=== PATIENT | male | born 1960 | race Caucasian/White ===

== ENCOUNTER 2017-01-16 18:43 | Emergency (ER) | payer OTHER ==
[2017-01-16 22:24] LABS: HEMOGLOBIN 11.9 gm/dl (14.0-17.5); RED BLOOD COUNT 4.44 M/UL (4.20-5.50); WHITE BLOOD COUNT 7.8 K/UL (4.5-11.0)
== END 2017-01-17 06:00 | disposition home or self-care (01) ==
LOC: ER1 18:43
PROVIDERS: Family Medicine
DX: I87.8 Other specified disorders of veins (principal); L98.8 Other specified disorders of the skin and subcutaneous tissue; N19 Unspecified kidney failure; E11.9 Type 2 diabetes mellitus without complications; I10 Essential (primary) hypertension
CPT/HCPCS: 36415; 71020; 80053; 81001; 83036; 85025; 85379; 87086; 93005; 99283

== ENCOUNTER → 2017-01-21 | Outpatient (CLI) | payer OTHER | LOC: US 10:43 | DX: M79.662 Pain in left lower leg (principal); M79.661 Pain in right lower leg | CPT/HCPCS: 93970 ==

== ENCOUNTER 2017-02-05 13:07 | Emergency (ER) | payer OTHER | END 2017-02-05 15:28 | disposition home or self-care (01) | LOC: ER1 13:07 | DX: I10 Essential (primary) hypertension (principal); E11.9 Type 2 diabetes mellitus without complications; I49.9 Cardiac arrhythmia, unspecified; Z87.891 Personal history of nicotine dependence | CPT/HCPCS: 36415; 71010; 99284 ==

== ENCOUNTER 2020-12-12 12:33 | Emergency (ER) | payer OTHER ==
[~2020-12-12 12:33] MED LIST: AMOX TR-K CLV1 EAC4 PO; CARVEDILOL3.125 MG PO; CARVEDILOL6.25 MG PO; NORVASC 5 MG TAB5 MG PO
[2020-12-12 14:50] LABS: HEMOGLOBIN 12.8 gm/dl (14.0-17.5); RED BLOOD COUNT 4.56 M/UL (4.20-5.50); WHITE BLOOD COUNT 6.9 K/UL (4.5-11.0)
[2020-12-12] MEDS ORDERED: CLINDAMYCIN HC150 MG PO (17:14)
[2020-12-12] MEDS ORDERED: LASIX20 MG PO (17:14)
== END 2020-12-12 17:30 | disposition home or self-care (01) ==
LOC: ER1 12:33
PROVIDERS: Student in an Organized Health Care Education/Training Program
DX: L03.116 Cellulitis of left lower limb (principal); L03.115 Cellulitis of right lower limb; I10 Essential (primary) hypertension
CPT/HCPCS: 73590; 80053; 82550; 82553; 83605; 83735; 83874; 83880; 84100; 84484; 85025; 85652; 86140; 93971; 99284

== ENCOUNTER 2020-12-20 11:43 | Inpatient (IN) | payer OTHER ==
[~2020-12-20] VITALS: Ht 193 cm; Wt 158.8 kg
[~2020-12-20 11:43] MED LIST changes: +CLINDAMYCIN HC150 MG PO; +LASIX20 MG PO
[2020-12-20 14:36] LABS: HEMOGLOBIN 12.6 gm/dl (14.0-17.5); RED BLOOD COUNT 4.51 M/UL (4.20-5.50); WHITE BLOOD COUNT 6.9 K/UL (4.5-11.0)
[2020-12-21 05:33] LABS: HEMOGLOBIN 11.5 gm/dl (14.0-17.5); RED BLOOD COUNT 4.19 M/UL (4.20-5.50); WHITE BLOOD COUNT 6.5 K/UL (4.5-11.0)
[2020-12-21] MEDS ORDERED: COREG3.125 MG PO (10:49)
[2020-12-23 05:39] LABS: HEMOGLOBIN 11.6 gm/dl (14.0-17.5); RED BLOOD COUNT 4.21 M/UL (4.20-5.50); WHITE BLOOD COUNT 6.5 K/UL (4.5-11.0)
[2020-12-24 05:44] LABS: HEMOGLOBIN 11.5 gm/dl (14.0-17.5); RED BLOOD COUNT 4.22 M/UL (4.20-5.50); WHITE BLOOD COUNT 6.9 K/UL (4.5-11.0)
[2020-12-25] MEDS ORDERED: OMNICEF 300 MG300 MG PO (11:11)
[2020-12-25] MEDS ORDERED: LASIX20 MG PO (11:11)
[2020-12-25] MEDS ORDERED: HYDRALAZINE HCL25 MG PO (11:15)
--- NOTE | 2020-12-25 12:05 | NUR ---
1210: PATIENT IS UNABLE TO READ, RN SPOKE WITH PATIENTS BROTHER, REGARDING DISCHARGE INSTRUCTIONS FOR MEDICATIONS, FOLLOW-UP APOINTMENTS AND RETURNING TO THE HOSPITAL FOR SCHEDULED LABS AND CXR JANUARY 04, 2021, AND ULTRASOUND ON JANUARY 24, 2021. VERBAL UNDERSTANDING NOTED.
== END 2020-12-25 12:13 | disposition home health service (06) | DRG 602 ==
LOC: ER1 11:43 → CDU 18:19 → MED SURG 4 18:19
PROVIDERS: Emergency Medicine; Internal Medicine; ADMIT Internal Medicine
DX: L03.115 Cellulitis of right lower limb (principal); I21.4 Non-ST elevation (NSTEMI) myocardial infarction; J81.1 Chronic pulmonary edema; N17.9 Acute kidney failure, unspecified; I13.0 Hypertensive heart and chronic kidney disease with heart failure and stage 1 through stage 4 chronic kidney disease, or unspecified chronic kidney disease; Z68.41 Body mass index [BMI] 40.0-44.9, adult; L03.116 Cellulitis of left lower limb; I87.8 Other specified disorders of veins; E11.9 Type 2 diabetes mellitus without complications; D53.9 Nutritional anemia, unspecified; Z20.822 Contact with and (suspected) exposure to COVID-19; E66.01 Morbid (severe) obesity due to excess calories; N18.30 Chronic kidney disease, stage 3 unspecified; I50.810 Right heart failure, unspecified; R59.1 Generalized enlarged lymph nodes; Z91.14 Patient's other noncompliance with medication regimen; Z87.891 Personal history of nicotine dependence
CPT/HCPCS: ECHO; 36415; 71046; 80048; 80053; 82550; 82553; 82962; 83874; 83880; 84484; 85025; 85652; 86140; 93005; 93306; 94664; 96374; 96375; 99284; J0690; J1650; U0002

== ENCOUNTER 2021-01-04 11:32 | Emergency (ER) | payer OTHER ==
[~2021-01-04 11:32] MED LIST changes: +COREG3.125 MG PO; +HYDRALAZINE HCL25 MG PO; +OMNICEF 300 MG300 MG PO
[2021-01-04 13:51] LABS: HEMOGLOBIN 12.1 gm/dl (14.0-17.5); RED BLOOD COUNT 4.31 M/UL (4.20-5.50); WHITE BLOOD COUNT 6.1 K/UL (4.5-11.0)
== END 2021-01-04 16:15 | disposition home or self-care (01) ==
LOC: ER1 11:32
PROVIDERS: Physician Assistant Medical
DX: I87.2 Venous insufficiency (chronic) (peripheral) (principal); I87.8 Other specified disorders of veins; I12.9 Hypertensive chronic kidney disease with stage 1 through stage 4 chronic kidney disease, or unspecified chronic kidney disease; N18.9 Chronic kidney disease, unspecified; R09.89 Other specified symptoms and signs involving the circulatory and respiratory systems; Z79.899 Other long term (current) drug therapy
CPT/HCPCS: 71046; 80053; 85025; 99283

== ENCOUNTER → 2021-01-18 | Outpatient (CLI) | payer OTHER | LOC: WCC 13:00 | DX: I87.313 Chronic venous hypertension (idiopathic) with ulcer of bilateral lower extremity (principal); L97.921 Non-pressure chronic ulcer of unspecified part of left lower leg limited to breakdown of skin; I12.9 Hypertensive chronic kidney disease with stage 1 through stage 4 chronic kidney disease, or unspecified chronic kidney disease; N18.9 Chronic kidney disease, unspecified; E66.01 Morbid (severe) obesity due to excess calories; R60.0 Localized edema; L03.116 Cellulitis of left lower limb; Z91.19 Patient's noncompliance with other medical treatment and regimen; Z87.891 Personal history of nicotine dependence; Z79.899 Other long term (current) drug therapy; Z68.39 Body mass index [BMI] 39.0-39.9, adult | CPT/HCPCS: G0463 ==

== ENCOUNTER → 2021-01-25 | Outpatient (CLI) | payer OTHER | LOC: WCC 13:12 | DX: I87.313 Chronic venous hypertension (idiopathic) with ulcer of bilateral lower extremity (principal); L97.929 Non-pressure chronic ulcer of unspecified part of left lower leg with unspecified severity; L97.919 Non-pressure chronic ulcer of unspecified part of right lower leg with unspecified severity; I12.9 Hypertensive chronic kidney disease with stage 1 through stage 4 chronic kidney disease, or unspecified chronic kidney disease; N18.9 Chronic kidney disease, unspecified; R60.0 Localized edema; L03.116 Cellulitis of left lower limb; E66.01 Morbid (severe) obesity due to excess calories; Z68.39 Body mass index [BMI] 39.0-39.9, adult; Z91.19 Patient's noncompliance with other medical treatment and regimen; Z79.899 Other long term (current) drug therapy | CPT/HCPCS: 97597 ==

== ENCOUNTER → 2021-02-13 | Outpatient (CLI) | payer OTHER | LOC: WCC 15:16 | DX: I87.313 Chronic venous hypertension (idiopathic) with ulcer of bilateral lower extremity (principal); L97.922 Non-pressure chronic ulcer of unspecified part of left lower leg with fat layer exposed; L97.912 Non-pressure chronic ulcer of unspecified part of right lower leg with fat layer exposed; I12.9 Hypertensive chronic kidney disease with stage 1 through stage 4 chronic kidney disease, or unspecified chronic kidney disease; N18.9 Chronic kidney disease, unspecified; E66.01 Morbid (severe) obesity due to excess calories; R60.0 Localized edema; L03.116 Cellulitis of left lower limb; Z91.19 Patient's noncompliance with other medical treatment and regimen; Z68.39 Body mass index [BMI] 39.0-39.9, adult; Z79.899 Other long term (current) drug therapy ==

== ENCOUNTER → 2021-02-21 | Outpatient (CLI) | payer OTHER | LOC: WCC 13:45 | DX: I87.313 Chronic venous hypertension (idiopathic) with ulcer of bilateral lower extremity (principal); L97.821 Non-pressure chronic ulcer of other part of left lower leg limited to breakdown of skin; L97.811 Non-pressure chronic ulcer of other part of right lower leg limited to breakdown of skin; I12.9 Hypertensive chronic kidney disease with stage 1 through stage 4 chronic kidney disease, or unspecified chronic kidney disease; N18.9 Chronic kidney disease, unspecified; L03.116 Cellulitis of left lower limb; E66.01 Morbid (severe) obesity due to excess calories; Z68.39 Body mass index [BMI] 39.0-39.9, adult; Z91.14 Patient's other noncompliance with medication regimen | CPT/HCPCS: 97597 ==

== ENCOUNTER → 2021-02-28 | Outpatient (CLI) | payer OTHER | LOC: WCC 13:18 | DX: L97.911 Non-pressure chronic ulcer of unspecified part of right lower leg limited to breakdown of skin (principal) | CPT/HCPCS: G0463 ==